=== PATIENT | male | born 1985 | race Caucasian/White ===

== ENCOUNTER 2019-12-01 08:51 | Outpatient (CLI) | payer BC ==
--- NOTE | 2019-12-01 09:32 | ULT ---
EXAM: US Abdominal CLINICAL HISTORY: Epigastric pain. COMPARISON: None. FINDINGS: Pancreas: The head and proximal pancreatic body have a normal echotexture. The remainder the pancrea s is obscured by bowel gas IVC: Visualized IVC has a normal caliber. Aorta: Visualized aorta has a normal caliber. Liver:Normal hepatic parenchymal echotexture. No hepatic masses or intrahepatic biliary dilatation. T he contour of the hepatic margin is maintained. Right hepatic lobe measures 11.9 cm. Gallbladder: No sonographic evidence of cholelithiasis, gallbladder wall thickening or pericholecysti c fluid. Riggs's sign:Negative CBD: 0.26 cm common bile duct diameter Portal vein: Patent. Appropriate directional flow. Right kidney: Normal cortical echotexture. No hydronephrosis Right kidney measuring 9.7 x 4.0 x 6.1 cm in length. Left kidney: Normal cortical echotexture. No hydronephrosis. Left kidney measuring 8.1 x 3.3 x 5.2 cm in length Spleen: Normal echotexture, measuring 10.7 cm in maximum dimension IMPRESSION: Unremarkable exam.
== END 2019-12-01 08:52 | disposition home or self-care (01) ==
LOC: BICULT 08:51
PROVIDERS: ATTEND Physician Assistant Medical
DX: K21.9 Gastro-esophageal reflux disease without esophagitis (principal); K30 Functional dyspepsia; R19.4 Change in bowel habit
CPT/HCPCS: 93975